=== PATIENT | male | born 1980 | race American Indian/Alaskan Native ===

== ENCOUNTER 2016-09-19 11:34 | Emergency (ER) | payer BC ==
[2016-09-19 12:41] VITALS: BP 159/106
[2016-09-19] MEDS ORDERED: XYLOCAINE 1% MPF 5 mL INFILTRATI ONE (13:10)
[2016-09-19] MEDS ORDERED: ROCEPHIN IM ONE (13:10)
[2016-09-19 13:16] LABS: Bacteria,Urine 4+ /HPF (Negative); Bilirubin,Urine NEG (Negative); Blood,Urine MOD (Negative); Ketones,Urine NEG (Negative); Leukocyte Esterase,Urine NEG (Negative); Mucus,Urine 1+ /HPF; Nitrite,Urine NEG (Negative); Sperm,Urine 1+ /HPF (NP); Urobilinogen,Urine < 2.0 mg/dL (<2.0)
[2016-09-19 13:17] LABS: RBC,Urine > 182.0 /HPF (0.0-6.0)
--- NOTE | 2016-09-19 13:22 | Emergency Department Report ---
ED Male HPI - General Chief complaint: Urogenital-Male Stated complaint: BLOOD IN URINE Time Seen by Provider: 09/19/16 13:00 Source: patient Mode of arrival: Ambulatory Limitations: No Limitations - History of Present Illness Initial comments: Pt c/o intermittent blood in his semen. PT states that after he had sex last night, he noticed some blood in his urine. PT states he had this problem 2 years ago and he had prostatitis. PT states his semen felt thick yesterday pt has pmh of htn and states he took his bp medication waitstaff captain MD Complaint: dysuria Location: penis Radiation: none Severity scale (0 -10): 0 Quality: burning (after urination ) - Related Data Sexually active: Yes (states he always uses condoms ) Previous Rx's Medication Instructions Recorded Last Taken Type Doxycycline [Vibramycin CAP] 100 mg PO Q12HR #20 capsule 09/19/16 Unknown Rx Allergies Allergy/AdvReac Type Severity Reaction Status Date / Time No Known Allergies Allergy Unverified 09/19/16 12:35 ED Review of Systems ROS: Stated complaint: BLOOD IN URINE Other details as noted in HPI Comment: All other systems reviewed and negative Constitutional: denies: chills, fever Gastrointestinal: denies: nausea, vomiting Genitourinary: dysuria. denies: discharge, testicular pain ED Past Medical Hx - Past Medical History Hx Hypertension: Yes Additional medical history: Prostate problem - Surgical History Past Surgical History?: No - Social History Smoking Status: Current Every Day Smoker Substance Use Type: Marijuana - Medications Home Medications: Home Medications Medication Instructions Recorded Confirmed Last Taken Type Doxycycline [Vibramycin CAP] 100 mg PO Q12HR #20 capsule 09/19/16 Unknown Rx ED Physical Exam - General Limitations: No Limitations General appearance: alert, in no apparent distress - Head Head exam: Present: atraumatic, normocephalic - Eye Eye exam: Present: normal appearance. Absent: conjunctival injection - ENT ENT exam: Present: normal exam, normal orophraynx - Neck Neck exam: Present: normal inspection, full ROM - Respiratory Respiratory exam: Present: normal lung sounds bilaterally. Absent: respiratory distress - Cardiovascular Cardiovascular Exam: Present: regular rate, normal rhythm - GI/Abdominal GI/Abdominal exam: Present: soft. Absent: tenderness - Extremities Exam Extremities exam: Present: normal inspection, full ROM - Back Exam Back exam: Present: normal inspection, full ROM. Absent: tenderness, CVA tenderness (R), CVA tenderness (L) - Neurological Exam Neurological exam: Present: alert, oriented X3 - Psychiatric Psychiatric exam: Present: normal affect, normal mood - Skin Skin exam: Present: warm, dry, intact ED Course Vital Signs 09/19/16 12:35 Temperature 97.5 F L Pulse Rate 103 H Respiratory 18 Rate Blood Pressure 159/106 O2 Sat by Pulse 100 Oximetry - Reevaluation(s) Reevaluation #1: 09/19/16 14:08 PT aware of available lab results and plan of care. PT has no questions at this time. PT states he will be able to follow up with PCP for bp recheck - Pulse Oximetry Interpretation Digit-Finger Initial Pulse Oximetry Readin Actions Taken: none ED Medical Decision Making - Lab Data urine significant for blood and bacteria - Differential Diagnosis std, uti Critical care attestation.: If time is entered above; I have spent that time in minutes in the direct care of this critically ill patient, excluding procedure time. ED Disposition Clinical Impression: Urethritis Disposition: DISCHARGED TO HOME OR SELFCARE Is pt being admited?: No Does the pt Need Aspirin: No Condition: Stable Instructions: Nonspecific Urethritis in Men (ED) Additional Instructions: Follow up with PCP for recheck of your bp no sex x 2 weeks Prescriptions: Doxycycline [Vibramycin CAP] 100 mg PO Q12HR #20 capsule Referrals: PRIMARY CARE, [Primary Care Provider] - 3-5 Days Forms: STI Treatment and Prevention Time of Disposition: 14:09
== END 2016-09-19 14:24 | disposition home or self-care (01) ==
LOC: ED 11:34
DX: N34.2 Other urethritis (principal); I10 Essential (primary) hypertension; F17.200 Nicotine dependence, unspecified, uncomplicated; F12.10 Cannabis abuse, uncomplicated; Z79.2 Long term (current) use of antibiotics
CPT/HCPCS: 81001; 87591; 96372; 99283; J0696